=== PATIENT | female | born 1990 | race Caucasian/White ===

== ENCOUNTER 2018-02-20 22:08 | Inpatient (IN) ==
[2018-02-26 12:22] VITALS: BP 133/82
== END 2018-02-26 16:40 | disposition home or self-care (01) | DRG 167 ==
LOC: EDUNIT# → EDBD → N.ED 22:08 → N.EDINP 02-21 01:23 → SUATTDRO 02-21 01:23 → N.3E 02-21 01:58
PROVIDERS: ADMIT Internal Medicine; ATTEND Internal Medicine

== ENCOUNTER 2019-02-23 16:17 | Inpatient (IN) ==
[2019-02-23] MEDS ORDERED: ONDANSETRON 4 MG/2 ML VIAL IV STA (16:46)
[2019-02-23] MEDS ORDERED: FUROSEMIDE 40 MG/4 ML VIAL IV STA (16:46)
[2019-02-23] MEDS ORDERED: ALBUTEROL/IPRATROPIUM 3 ML NEB RESP TX STA (16:46)
[2019-02-23] MEDS ORDERED: methylPREDNISolone SOD SUC 125 MG/2 ML VIAL IV STA (16:46)
[2019-02-23 17:33] LABS: Basophils # 0.1 10*3/uL (0.0-0.2); Basophils % 0.8 % (0.0-0.8); Eosinophils # 0.3 10*3/uL (0.0-0.87); Eosinophils % 5.8 % (0.00-10.9); Hematocrit 36.9 VOL% (35.7-47.0); Hemoglobin 12.3 GM/DL (12.0-16.0); Immature Granulocytes % 0.3 %; Immature Granulocytes Absolute 0.02 #; Lymphocytes # 1.1 10*3/uL (1.4-4.0); Lymphocytes % 18.3 % (21.3-54.2); Mean Corpuscular HGB Conc 33.3 GM/DL (32-36); Mean Corpuscular Volume 91.8 FL (87-102); Mean Platelet Volume 11.3 FL (9.6-12.0); Monocytes % 12.9 % (1.7-12.7); Neutrophils % 61.9 % (38.7-73.9); Platelet Count 76 T/CUMM (130-400); Red Blood Count 4.02 MC/CUMM (3.8-5.5); Red Cell Distribution Width 14.7 % (9.3-17.3); White Blood Count 5.9 T/CUMM (4-12)
[2019-02-23 17:42] LABS: INR 1.3; PT Patient Result 14.1 SECS
[2019-02-23 17:59] LABS: Albumin 2.3 G/DL (3.4-5.0); Bilirubin,Total 1.4 MG/DL (0.2-1.0); Calcium 7.7 MG/DL (8.5-10.1); Osmolality,Calculated 273.7 MOS/KG (273-304); Total Protein 8.1 G/DL (6.4-8.3)
[2019-02-23 18:06] LABS: Apearance,Urine CLOUDY (Clear); Blood, Urine Moderate mg/dL (Negative); Glucose,Urine (UA) Negative (Negative); Ketones,Urine Negative (Negative); Mucus,Urine Many /LPF (Occasional); Nitrite,Urine Negative (Negative); Protein,Urine 30 MG/DL; RBC,Urine 14 /HPF (0-4); Squamous Epithelial Cell,Urine Moderate /HPF (0-10); Urine Specific Gravity 1.029 (1.001-1.035); WBC,Urine 1 /HPF (0-6)
[2019-02-23 18:07] LABS: Bilirubin,Urine Small mg/dL (Negative); Urine Color Dark yellow (Yellow)
[2019-02-24] MEDS ORDERED: ALBUTEROL 2.5 MG/3 ML NEB RESP TX PRN ×2 (00:33→13:51)
[2019-02-24] MEDS ORDERED: POTASSIUM CHLORIDE RIDER 10 MEQ in PREMIX 1 EACH IV PRN (00:33)
[2019-02-24] MEDS ORDERED: DOCUSATE SODIUM 100 MG CAPSULE PO PRN (00:33)
[2019-02-24] MEDS: AZITHROMYCIN INJ 500 MG in SODIUM CHLORIDE 0.9% 250 ML IV SCH (00:53)
[2019-02-24] MEDS: SODIUM CHLORIDE 0.9% 1,000 ML IV SCH ×2 (00:53→15:29)
[2019-02-24] MEDS: guaiFENesin/DM ER 600-30 MG TABLET PO SCH ×3 (00:57→22:10)
[2019-02-24] MEDS: MUPIROCIN 2% OINT 22 GM TUBE TOP SCH ×3 (00:57→22:14)
[2019-02-24] MEDS: ALBUTEROL/IPRATROPIUM 3 ML NEB RESP TX SCH ×4 (02:46→19:20)
[2019-02-24] MEDS: AZTREONAM 2,000 MG in SYRINGE 1 EACH IV SCH ×4 (02:53→22:11)
[2019-02-24] MEDS: VANCOMYCIN INJ 1,000 MG in SODIUM CHLORIDE 0.9% 250 ML IV SCH ×2 (02:57→15:29)
[2019-02-24 04:53] LABS: Basophils % 0.5 % (0.0-0.8); Hematocrit 34.5 VOL% (35.7-47.0); Hemoglobin 11.8 GM/DL (12.0-16.0); Immature Granulocytes % 0.5 %; Immature Granulocytes Absolute 0.01 #; Lymphocytes # 0.3 10*3/uL (1.4-4.0); Lymphocytes % 18.4 % (21.3-54.2); Mean Corpuscular HGB Conc 34.2 GM/DL (32-36); Mean Corpuscular Volume 91.3 FL (87-102); Mean Platelet Volume 11.4 FL (9.6-12.0); Monocytes % 1.6 % (1.7-12.7); Red Blood Count 3.78 MC/CUMM (3.8-5.5); Red Cell Distribution Width 14.6 % (9.3-17.3); White Blood Count 1.9 T/CUMM (4-12)
[2019-02-24 04:57] LABS: Platelet Count 45 T/CUMM (130-400)
[2019-02-24 05:31] LABS: Calcium 8.2 MG/DL (8.5-10.1); Osmolality,Calculated 283.5 MOS/KG (273-304); Thyroid Stimulating Hormone 1.98 uIU/ml (0.358-3.74)
[2019-02-24 05:33] LABS: Band Neutrophils 3 % (0-10); Hypochromasia 2+; Lymphocytes 17 % (20-55); Platelet Estimate Decreased; Segmented Neutrophils 76 % (50-85); Total Cells Counted 100
[2019-02-24] MEDS ORDERED: POTASSIUM CHLORIDE 20 MEQ TABLET PO PRN (06:35)
[2019-02-24] MEDS: ONDANSETRON 4 MG/2 ML VIAL IV PRN ×2 (06:37→11:59)
[2019-02-24] MEDS ORDERED: DICYCLOMINE 20 MG TABLET PO PRN (13:51)
[2019-02-24] MEDS ORDERED: PROMETHAZINE 25 MG TABLET PO PRN (13:51)
[2019-02-24] MEDS: oxyCODONE IR 5 MG TABLET PO PRN ×2 (15:27→22:10)
[2019-02-24] MEDS: PROPRANOLOL 10 MG TABLET PO SCH ×2 (15:28→22:10)
[2019-02-24] MEDS: POTASSIUM CHLORIDE 20 MEQ/15 ML UDCUP PO SCH ×2 (15:28→17:24)
[2019-02-24] MEDS: ONDANSETRON 4 MG TABLET PO PRN (15:28)
[2019-02-24] MEDS: CHOLECALCIFEROL 1,000 UNIT TABLET PO SCH (22:10)
[2019-02-24] MEDS: BUDESONIDE/FORMOTEROL 160-4.5 INHALER 6 GM INH SCH (22:15)
[2019-02-25] MEDS: ALBUTEROL/IPRATROPIUM 3 ML NEB RESP TX SCH ×4 (00:29→19:20)
[2019-02-25] MEDS: AZITHROMYCIN INJ 500 MG in SODIUM CHLORIDE 0.9% 250 ML IV SCH (00:56)
[2019-02-25] MEDS: VANCOMYCIN INJ 1,000 MG in SODIUM CHLORIDE 0.9% 250 ML IV SCH ×3 (02:57→23:25)
[2019-02-25 06:17] LABS: Basophils % 0.2 % (0.0-0.8); Eosinophils % 0.2 % (0.00-10.9); Hematocrit 33.5 VOL% (35.7-47.0); Hemoglobin 10.9 GM/DL (12.0-16.0); Immature Granulocytes % 0.8 %; Immature Granulocytes Absolute 0.05 #; Lymphocytes # 0.8 10*3/uL (1.4-4.0); Lymphocytes % 13.3 % (21.3-54.2); Mean Corpuscular HGB Conc 32.5 GM/DL (32-36); Mean Corpuscular Volume 94.4 FL (87-102); Mean Platelet Volume 11.4 FL (9.6-12.0); Monocytes % 7.6 % (1.7-12.7); Neutrophils % 77.9 % (38.7-73.9); Platelet Count 47 T/CUMM (130-400); Red Blood Count 3.55 MC/CUMM (3.8-5.5); Red Cell Distribution Width 14.8 % (9.3-17.3); White Blood Count 5.9 T/CUMM (4-12)
[2019-02-25 06:38] LABS: Band Neutrophils 1 % (0-10); Hypochromasia 1+; Lymphocytes 12 % (20-55); Platelet Estimate Decreased; Segmented Neutrophils 82 % (50-85); Total Cells Counted 100
[2019-02-25 06:59] LABS: Calcium 7.4 MG/DL (8.5-10.1)
[2019-02-25] MEDS: AZTREONAM 2,000 MG in SYRINGE 1 EACH IV SCH ×4 (08:28→21:06)
[2019-02-25] MEDS: guaiFENesin/DM ER 600-30 MG TABLET PO SCH ×2 (08:36→21:02)
[2019-02-25] MEDS: LEVOTHYROXINE 50 MCG TABLET PO SCH (08:37)
[2019-02-25] MEDS: CHOLECALCIFEROL 1,000 UNIT TABLET PO SCH ×2 (08:37→21:02)
[2019-02-25] MEDS: LINACLOTIDE 145 MCG CAPSULE PO SCH (08:37)
[2019-02-25] MEDS: PANTOPRAZOLE 40 MG TABLET PO SCH (08:38)
[2019-02-25] MEDS: SPIRONOLACTONE 100 MG TABLET PO SCH (08:38)
[2019-02-25] MEDS: BUDESONIDE/FORMOTEROL 160-4.5 INHALER 6 GM INH SCH ×2 (08:38→21:22)
[2019-02-25] MEDS: SODIUM CHLORIDE 0.9% 1,000 ML IV SCH ×2 (08:40→23:24)
[2019-02-25] MEDS: PROPRANOLOL 10 MG TABLET PO SCH ×3 (08:42→21:03)
[2019-02-25] MEDS: MUPIROCIN 2% OINT 22 GM TUBE TOP SCH ×2 (08:42→21:03)
[2019-02-25] MEDS: oxyCODONE IR 5 MG TABLET PO PRN (12:01)
[2019-02-25] MEDS: ONDANSETRON 4 MG TABLET PO PRN (12:01)
[2019-02-26] MEDS: ALBUTEROL/IPRATROPIUM 3 ML NEB RESP TX SCH ×4 (00:25→19:10)
[2019-02-26] MEDS: AZTREONAM 2,000 MG in SYRINGE 1 EACH IV SCH ×4 (03:55→22:02)
[2019-02-26 06:36] LABS: Basophils % 0.6 % (0.0-0.8); Eosinophils # 0.1 10*3/uL (0.0-0.87); Eosinophils % 3.3 % (0.00-10.9); Hematocrit 34.3 VOL% (35.7-47.0); Hemoglobin 10.7 GM/DL (12.0-16.0); Immature Granulocytes % 0.6 %; Immature Granulocytes Absolute 0.02 #; Lymphocytes # 0.8 10*3/uL (1.4-4.0); Mean Corpuscular HGB Conc 31.2 GM/DL (32-36); Mean Corpuscular Volume 97.4 FL (87-102); Mean Platelet Volume 11.9 FL (9.6-12.0); Neutrophils % 59.5 % (38.7-73.9); Platelet Count 54 T/CUMM (130-400); Red Blood Count 3.52 MC/CUMM (3.8-5.5); Red Cell Distribution Width 15.2 % (9.3-17.3); White Blood Count 3.3 T/CUMM (4-12)
[2019-02-26] MEDS: VANCOMYCIN INJ 1,000 MG in SODIUM CHLORIDE 0.9% 250 ML IV SCH ×3 (06:37→22:07)
[2019-02-26] MEDS: LEVOTHYROXINE 50 MCG TABLET PO SCH (06:44)
[2019-02-26 06:52] LABS: Albumin 1.7 G/DL (3.4-5.0); Bilirubin,Direct 0.31 MG/DL (0.0-0.20); Bilirubin,Indirect 0.3 MG/DL (0.0-1.0); Bilirubin,Total 0.6 MG/DL (0.2-1.0); Calcium 7.4 MG/DL (8.5-10.1); Osmolality,Calculated 287.7 MOS/KG (273-304); Total Protein 6.3 G/DL (6.4-8.3)
[2019-02-26 06:59] LABS: Anisocytosis 1+; Platelet Estimate Decreased
[2019-02-26 07:00] LABS: Macrocytosis Slight
[2019-02-26] MEDS: BUDESONIDE/FORMOTEROL 160-4.5 INHALER 6 GM INH SCH ×2 (08:40→22:17)
[2019-02-26] MEDS: AZITHROMYCIN 250 MG TABLET PO SCH (08:41)
[2019-02-26] MEDS: PROPRANOLOL 10 MG TABLET PO SCH ×3 (08:41→22:06)
[2019-02-26] MEDS: CHOLECALCIFEROL 1,000 UNIT TABLET PO SCH ×2 (08:41→22:02)
[2019-02-26] MEDS: MUPIROCIN 2% OINT 22 GM TUBE TOP SCH ×2 (08:41→21:58)
[2019-02-26] MEDS: PANTOPRAZOLE 40 MG TABLET PO SCH (08:41)
[2019-02-26] MEDS: guaiFENesin/DM ER 600-30 MG TABLET PO SCH ×2 (08:41→22:02)
[2019-02-26] MEDS: LINACLOTIDE 145 MCG CAPSULE PO SCH (08:42)
[2019-02-26] MEDS: SPIRONOLACTONE 100 MG TABLET PO SCH (08:44)
[2019-02-26] MEDS: oxyCODONE IR 5 MG TABLET PO PRN (10:17)
[2019-02-26] MEDS: ONDANSETRON 4 MG TABLET PO PRN (10:17)
[2019-02-26] MEDS: SODIUM CHLORIDE 0.9% 1,000 ML IV SCH (13:47)
[2019-02-27] MEDS: ALBUTEROL/IPRATROPIUM 3 ML NEB RESP TX SCH ×2 (00:45→07:51)
[2019-02-27] MEDS: AZTREONAM 2,000 MG in SYRINGE 1 EACH IV SCH ×4 (04:33→21:33)
[2019-02-27] MEDS: SODIUM CHLORIDE 0.9% 1,000 ML IV SCH (06:34)
[2019-02-27] MEDS: VANCOMYCIN INJ 1,000 MG in SODIUM CHLORIDE 0.9% 250 ML IV SCH ×3 (06:35→21:45)
[2019-02-27] MEDS: LEVOTHYROXINE 50 MCG TABLET PO SCH (06:36)
[2019-02-27] MEDS: oxyCODONE IR 5 MG TABLET PO PRN ×2 (08:53→21:47)
[2019-02-27] MEDS: LINACLOTIDE 145 MCG CAPSULE PO SCH (08:54)
[2019-02-27] MEDS: AZITHROMYCIN 250 MG TABLET PO SCH (08:55)
[2019-02-27] MEDS: guaiFENesin/DM ER 600-30 MG TABLET PO SCH ×2 (08:55→21:35)
[2019-02-27] MEDS: SPIRONOLACTONE 100 MG TABLET PO SCH (08:55)
[2019-02-27] MEDS: PANTOPRAZOLE 40 MG TABLET PO SCH (08:55)
[2019-02-27] MEDS: CHOLECALCIFEROL 1,000 UNIT TABLET PO SCH ×2 (08:55→21:35)
[2019-02-27] MEDS: BUDESONIDE/FORMOTEROL 160-4.5 INHALER 6 GM INH SCH ×2 (08:56→21:37)
[2019-02-27] MEDS: MUPIROCIN 2% OINT 22 GM TUBE TOP SCH ×2 (08:56→21:41)
[2019-02-27] MEDS: PROPRANOLOL 10 MG TABLET PO SCH ×3 (08:56→21:37)
[2019-02-27] MEDS: LEVALBUTEROL 0.63 MG/3 ML NEB RESP TX SCH ×2 (13:37→19:20)
[2019-02-27] MEDS: ONDANSETRON 4 MG TABLET PO PRN (21:47)
[2019-02-28] MEDS: LEVALBUTEROL 0.63 MG/3 ML NEB RESP TX SCH ×4 (00:40→20:00)
[2019-02-28] MEDS: AZTREONAM 2,000 MG in SYRINGE 1 EACH IV SCH ×2 (02:56→09:06)
[2019-02-28 05:29] LABS: Basophils % 0.9 % (0.0-0.8); Eosinophils # 0.2 10*3/uL (0.0-0.87); Eosinophils % 9.2 % (0.00-10.9); Hematocrit 33.6 VOL% (35.7-47.0); Hemoglobin 10.9 GM/DL (12.0-16.0); Lymphocytes # 0.6 10*3/uL (1.4-4.0); Lymphocytes % 27.2 % (21.3-54.2); Mean Corpuscular HGB Conc 32.4 GM/DL (32-36); Mean Corpuscular Volume 95.5 FL (87-102); Mean Platelet Volume 11.8 FL (9.6-12.0); Monocytes % 11.1 % (1.7-12.7); Neutrophils % 51.6 % (38.7-73.9); Platelet Count 40 T/CUMM (130-400); Red Blood Count 3.52 MC/CUMM (3.8-5.5); Red Cell Distribution Width 14.8 % (9.3-17.3); White Blood Count 2.2 T/CUMM (4-12)
[2019-02-28] MEDS: VANCOMYCIN INJ 1,000 MG in SODIUM CHLORIDE 0.9% 250 ML IV SCH ×3 (05:33→21:15)
[2019-02-28] MEDS: LEVOTHYROXINE 50 MCG TABLET PO SCH (05:34)
[2019-02-28 05:55] LABS: Eosinophils 17 % (0-10); Hypochromasia 1+; Lymphocytes 17 % (20-55); Macrocytosis Slight; Platelet Estimate Decreased; Segmented Neutrophils 58 % (50-85); Total Cells Counted 100
[2019-02-28 06:10] LABS: Calcium 7.8 MG/DL (8.5-10.1)
[2019-02-28] MEDS: SPIRONOLACTONE 100 MG TABLET PO SCH (09:06)
[2019-02-28] MEDS: LINACLOTIDE 145 MCG CAPSULE PO SCH (09:06)
[2019-02-28] MEDS: BUDESONIDE/FORMOTEROL 160-4.5 INHALER 6 GM INH SCH ×2 (09:07→21:15)
[2019-02-28] MEDS: PROPRANOLOL 10 MG TABLET PO SCH ×3 (09:07→21:14)
[2019-02-28] MEDS: CHOLECALCIFEROL 1,000 UNIT TABLET PO SCH ×2 (09:07→21:14)
[2019-02-28] MEDS: guaiFENesin/DM ER 600-30 MG TABLET PO SCH ×2 (09:07→21:14)
[2019-02-28] MEDS: AZITHROMYCIN 250 MG TABLET PO SCH (09:07)
[2019-02-28] MEDS: oxyCODONE IR 5 MG TABLET PO PRN ×2 (09:07→17:23)
[2019-02-28] MEDS: PANTOPRAZOLE 40 MG TABLET PO SCH (09:07)
[2019-02-28] MEDS: MUPIROCIN 2% OINT 22 GM TUBE TOP SCH ×2 (09:08→21:14)
[2019-02-28] MEDS ORDERED: AZTREONAM 2,000 MG in SYRINGE 1 EACH IV SCH (15:00)
[2019-02-28] MEDS: ONDANSETRON 4 MG TABLET PO PRN (17:23)
[2019-03-01] MEDS: LEVALBUTEROL 0.63 MG/3 ML NEB RESP TX SCH ×2 (00:28→07:09)
[2019-03-01] MEDS: VANCOMYCIN INJ 1,000 MG in SODIUM CHLORIDE 0.9% 250 ML IV SCH (06:53)
[2019-03-01] MEDS: LEVOTHYROXINE 50 MCG TABLET PO SCH (06:53)
[2019-03-01] MEDS: LINACLOTIDE 145 MCG CAPSULE PO SCH (06:54)
[2019-03-01 07:37] VITALS: BP 124/68
[2019-03-01] MEDS: PROPRANOLOL 10 MG TABLET PO SCH (09:02)
[2019-03-01] MEDS: guaiFENesin/DM ER 600-30 MG TABLET PO SCH (09:22)
[2019-03-01] MEDS: SPIRONOLACTONE 100 MG TABLET PO SCH (09:22)
[2019-03-01] MEDS: CHOLECALCIFEROL 1,000 UNIT TABLET PO SCH (09:22)
[2019-03-01] MEDS: MUPIROCIN 2% OINT 22 GM TUBE TOP SCH (09:23)
[2019-03-01] MEDS: PANTOPRAZOLE 40 MG TABLET PO SCH (09:23)
[2019-03-01] MEDS: BUDESONIDE/FORMOTEROL 160-4.5 INHALER 6 GM INH SCH (09:23)
== END 2019-03-01 11:59 | disposition home or self-care (01) | DRG 192 ==
LOC: N.ED 16:17 → N.EDINP 20:56 → SUATTDRO 20:56 → N.5E 21:11
PROVIDERS: ADMIT Internal Medicine; ATTEND Internal Medicine Geriatric Medicine

== ENCOUNTER 2019-03-14 20:23 | Inpatient (IN) ==
[2019-03-14 20:58] LABS: Basophils # 0.1 10*3/uL (0.0-0.2); Basophils % 0.7 % (0.0-0.8); Eosinophils # 0.7 10*3/uL (0.0-0.87); Eosinophils % 8.5 % (0.00-10.9); Hematocrit 42.5 VOL% (35.7-47.0); Hemoglobin 14.1 GM/DL (12.0-16.0); Immature Granulocytes % 0.6 %; Immature Granulocytes Absolute 0.05 #; Lymphocytes # 1.3 10*3/uL (1.4-4.0); Lymphocytes % 15.3 % (21.3-54.2); Mean Corpuscular HGB Conc 33.2 GM/DL (32-36); Mean Corpuscular Volume 91.8 FL (87-102); Mean Platelet Volume 10.2 FL (9.6-12.0); Monocytes % 12.7 % (1.7-12.7); Neutrophils % 62.2 % (38.7-73.9); Platelet Count 97 T/CUMM (130-400); Red Blood Count 4.63 MC/CUMM (3.8-5.5); Red Cell Distribution Width 14.5 % (9.3-17.3); White Blood Count 8.6 T/CUMM (4-12)
[2019-03-14 21:04] LABS: INR 1.4; PT Patient Result 15.3 SECS
[2019-03-14 21:21] LABS: Platelet Estimate Decreased; Platelet Satellitism Few
[2019-03-14 21:24] LABS: Albumin 2.6 G/DL (3.4-5.0); Bilirubin,Total 3.3 MG/DL (0.2-1.0); Osmolality,Calculated 268.1 MOS/KG (273-304); Total Protein 8.5 G/DL (6.4-8.3)
[2019-03-14] MEDS ORDERED: methylPREDNISolone SOD SUC 125 MG/2 ML VIAL IV STA (22:50)
[2019-03-14] MEDS ORDERED: ALBUTEROL/IPRATROPIUM 3 ML NEB RESP TX STA (22:50)
[2019-03-14] MEDS ORDERED: ONDANSETRON 4 MG/2 ML VIAL IV PRN (23:25)
[2019-03-14] MEDS ORDERED: NICOTINE 21 MG/24 HR PATCH TRANSDERM PRN (23:25)
[2019-03-15] MEDS ORDERED: VANCOMYCIN INJ 1,000 MG in SODIUM CHLORIDE 0.9% 250 ML IV SCH (01:00)
[2019-03-15] MEDS: ALBUTEROL/IPRATROPIUM 3 ML NEB RESP TX SCH ×4 (01:03→19:50)
[2019-03-15] MEDS: DOXYCYCLINE HYCLATE INJ 100 MG in SODIUM CHLORIDE 0.9% 100 ML IV SCH ×2 (02:07→14:53)
[2019-03-15] MEDS: AZTREONAM 1,000 MG in SODIUM CHLORIDE 0.9% 100 ML IV SCH ×2 (02:10→14:14)
[2019-03-15 02:25] LABS: Albumin 2.3 G/DL (3.4-5.0); Bilirubin,Total 3.3 MG/DL (0.2-1.0); Calcium 8.1 MG/DL (8.5-10.1); Osmolality,Calculated 274.7 MOS/KG (273-304); Total Protein 7.6 G/DL (6.4-8.3)
[2019-03-15] MEDS: POTASSIUM CHLORIDE 20 MEQ TABLET PO PRN ×3 (08:37→13:34)
[2019-03-15] MEDS: VANCOMYCIN INJ 1,000 MG in SODIUM CHLORIDE 0.9% 250 ML IV SCH ×2 (11:35→20:45)
[2019-03-15] MEDS ORDERED: MORPHINE 4 MG/1 ML VIAL IV PRN (23:45)
[2019-03-16] MEDS: ALBUTEROL/IPRATROPIUM 3 ML NEB RESP TX SCH ×5 (01:32→20:02)
[2019-03-16] MEDS: AZTREONAM 1,000 MG in SODIUM CHLORIDE 0.9% 100 ML IV SCH ×2 (02:08→15:01)
[2019-03-16] MEDS: DOXYCYCLINE HYCLATE INJ 100 MG in SODIUM CHLORIDE 0.9% 100 ML IV SCH ×2 (02:08→15:32)
[2019-03-16] MEDS: VANCOMYCIN INJ 1,000 MG in SODIUM CHLORIDE 0.9% 250 ML IV SCH ×3 (06:09→21:20)
[2019-03-16 07:22] LABS: Basophils % 0.3 % (0.0-0.8); Hematocrit 35.8 VOL% (35.7-47.0); Immature Granulocytes % 0.9 %; Immature Granulocytes Absolute 0.06 #; Lymphocytes # 0.5 10*3/uL (1.4-4.0); Lymphocytes % 7.3 % (21.3-54.2); Mean Corpuscular HGB Conc 32.4 GM/DL (32-36); Mean Platelet Volume 11.4 FL (9.6-12.0); Monocytes % 5.5 % (1.7-12.7); Red Blood Count 3.77 MC/CUMM (3.8-5.5); Red Cell Distribution Width 14.5 % (9.3-17.3)
[2019-03-16 07:25] LABS: Hemoglobin 11.6 GM/DL (12.0-16.0); Platelet Count 50 T/CUMM (130-400)
[2019-03-16] MEDS ORDERED: PROMETHAZINE 25 MG/1 ML VIAL IM ONE (07:30)
[2019-03-16] MEDS ORDERED: MEPERIDINE 50 MG/1 ML VIAL IM ONE (07:30)
[2019-03-16 07:36] LABS: Osmolality,Calculated 289.7 MOS/KG (273-304)
[2019-03-16] MEDS ORDERED: MIDAZOLAM 2 MG/2 ML VIAL ONE (07:39)
[2019-03-16 07:47] LABS: Hypochromasia Slight; Platelet Estimate Decreased
[2019-03-16] MEDS ORDERED: MIDAZOLAM 2 MG/2 ML VIAL IV ONE (08:00)
[2019-03-16] MEDS ORDERED: LIDOCAINE 2% 20 ML VIAL RESP TX ONE (08:00)
[2019-03-16] MEDS ORDERED: LIDOCAINE 2% VISCOUS 100 ML BOTTLE SWISH/SPIT ONE (08:00)
[2019-03-16] MEDS ORDERED: LIDOCAINE 1% 20 ML VIAL MISC INJ ONE (08:00)
[2019-03-17] MEDS: AZTREONAM 1,000 MG in SODIUM CHLORIDE 0.9% 100 ML IV SCH ×2 (01:02→15:31)
[2019-03-17] MEDS: DOXYCYCLINE HYCLATE INJ 100 MG in SODIUM CHLORIDE 0.9% 100 ML IV SCH ×2 (01:56→17:07)
[2019-03-17] MEDS: ALBUTEROL/IPRATROPIUM 3 ML NEB RESP TX SCH ×4 (02:02→19:18)
[2019-03-17] MEDS: VANCOMYCIN INJ 1,000 MG in SODIUM CHLORIDE 0.9% 250 ML IV SCH ×3 (03:15→21:42)
[2019-03-17] MEDS ORDERED: FLUMAZENIL 1 MG/10 ML VIAL IV ONE (12:14)
[2019-03-18] MEDS: ALBUTEROL/IPRATROPIUM 3 ML NEB RESP TX SCH ×3 (00:21→14:02)
[2019-03-18] MEDS: AZTREONAM 1,000 MG in SODIUM CHLORIDE 0.9% 100 ML IV SCH (02:00)
[2019-03-18] MEDS: DOXYCYCLINE HYCLATE INJ 100 MG in SODIUM CHLORIDE 0.9% 100 ML IV SCH ×2 (02:04→13:11)
[2019-03-18 04:42] LABS: Basophils % 0.3 % (0.0-0.8); Eosinophils # 0.1 10*3/uL (0.0-0.87); Eosinophils % 4.1 % (0.00-10.9); Hematocrit 34.4 VOL% (35.7-47.0); Hemoglobin 10.8 GM/DL (12.0-16.0); Immature Granulocytes % 0.7 %; Immature Granulocytes Absolute 0.02 #; Lymphocytes # 0.7 10*3/uL (1.4-4.0); Lymphocytes % 24.2 % (21.3-54.2); Mean Corpuscular HGB Conc 31.4 GM/DL (32-36); Mean Corpuscular Volume 97.7 FL (87-102); Mean Platelet Volume 11.2 FL (9.6-12.0); Monocytes % 12.6 % (1.7-12.7); Neutrophils % 58.1 % (38.7-73.9); Red Blood Count 3.52 MC/CUMM (3.8-5.5); Red Cell Distribution Width 15.1 % (9.3-17.3); White Blood Count 2.9 T/CUMM (4-12)
[2019-03-18 04:48] LABS: Platelet Count 52 T/CUMM (130-400)
[2019-03-18 05:03] LABS: Hypochromasia 1+; Platelet Estimate Decreased
[2019-03-18 05:13] LABS: Calcium 7.9 MG/DL (8.5-10.1); Osmolality,Calculated 292.4 MOS/KG (273-304)
[2019-03-18 12:17] VITALS: BP 101/61
[2019-03-18 14:16] LABS: TB2 Ag Minus Result 0 IU/mL
[2019-03-18] MEDS ORDERED: ESCITALOPRAM 10 MG TABLET PO SCH (21:00)
== END 2019-03-18 14:35 | disposition home health service (06) | DRG 191 ==
LOC: N.ED 20:23 → N.EDINP 23:30 → N.4E 23:58
PROVIDERS: ADMIT Hospitalist; ATTEND Hospitalist

== ENCOUNTER 2019-05-08 20:51 | Observation (INO) ==
[2019-05-08] MEDS ORDERED: ALBUTEROL/IPRATROPIUM 3 ML NEB RESP TX STA ×2 (21:16→21:49)
[2019-05-08] MEDS ORDERED: ORPHENADRINE 60 MG/2 ML VIAL IV STA (21:18)
[2019-05-08] MEDS ORDERED: VANCOMYCIN INJ 1,000 MG in SODIUM CHLORIDE 0.9% 250 ML IV STA (21:49)
[2019-05-08 22:31] LABS: Basophils % 0.7 % (0.0-0.8); Eosinophils # 0.1 10*3/uL (0.0-0.87); Eosinophils % 1.3 % (0.00-10.9); Hematocrit 38.4 VOL% (35.7-47.0); Hemoglobin 13.1 GM/DL (12.0-16.0); Immature Granulocytes % 0.5 %; Immature Granulocytes Absolute 0.03 #; Lymphocytes % 16.9 % (21.3-54.2); Mean Corpuscular HGB Conc 34.1 GM/DL (32-36); Mean Platelet Volume 12.1 FL (9.6-12.0); Monocytes % 7.5 % (1.7-12.7); Neutrophils % 73.1 % (38.7-73.9); Platelet Count 50 T/CUMM (130-400); Red Blood Count 4.22 MC/CUMM (3.8-5.5); Red Cell Distribution Width 14.8 % (9.3-17.3)
[2019-05-08 22:41] LABS: Apearance,Urine CLEAR (Clear); Bilirubin,Urine Negative (Negative); Blood, Urine Negative (Negative); Glucose,Urine (UA) Negative (Negative); Ketones,Urine Negative (Negative); Mucus,Urine Many /LPF (Occasional); Nitrite,Urine Negative (Negative); Protein,Urine 30 MG/DL; RBC,Urine 7 /HPF (0-4); Squamous Epithelial Cell,Urine Occasional /HPF (0-10); Urine Color Amber (Yellow); Urine Specific Gravity 1.019 (1.001-1.035); WBC,Urine 3 /HPF (0-6)
[2019-05-08 22:56] LABS: Albumin 2.6 G/DL (3.4-5.0); Bilirubin,Total 2.6 MG/DL (0.2-1.0); Calcium 8.2 MG/DL (8.5-10.1); Free T4 (Free Thyroxine) 1.51 NG/DL (0.76-1.46); Osmolality,Calculated 277.3 MOS/KG (273-304); Thyroid Stimulating Hormone 4.73 uIU/ml (0.358-3.74)
[2019-05-09] MEDS: ONDANSETRON 4 MG/2 ML VIAL IV PRN ×2 (00:10→14:33)
[2019-05-09] MEDS ORDERED: guaiFENesin 200 MG/10 ML UDCUP PO PRN (00:12)
[2019-05-09 00:31] LABS: Anisocytosis 1+; Platelet Estimate Decreased
[2019-05-09] MEDS ORDERED: INFLUENZA VIRUS VACCINE 0.5 ML SYRINGE IM ONE (00:54)
[2019-05-09 01:03] LABS: Troponin I < 0.015 NG/ML (0.00-0.045)
[2019-05-09] MEDS: POTASSIUM CHLORIDE RIDER 10 MEQ in PREMIX 1 EACH IV SCH ×3 (01:24→04:27)
[2019-05-09] MEDS: ALBUTEROL/IPRATROPIUM 3 ML NEB RESP TX SCH ×6 (02:30→23:51)
[2019-05-09 06:05] LABS: Troponin I < 0.015 NG/ML (0.00-0.045)
[2019-05-09] MEDS ORDERED: ENOXAPARIN 40 MG/0.4 ML SYRINGE SUBCUT SCH (09:00)
[2019-05-09] MEDS ORDERED: oxyCODONE IR 5 MG TABLET PO PRN (10:48)
[2019-05-09] MEDS: BUDESONIDE/FORMOTEROL 160-4.5 INHALER 6 GM INH SCH ×2 (10:50→21:05)
[2019-05-09] MEDS: VANCOMYCIN INJ 1,000 MG in SODIUM CHLORIDE 0.9% 250 ML IV SCH ×2 (11:06→16:20)
[2019-05-09 13:12] LABS: Troponin I < 0.015 NG/ML (0.00-0.045)
[2019-05-09 15:06] LABS: Calcium 7.9 MG/DL (8.5-10.1)
[2019-05-09] MEDS ORDERED: MAGNESIUM SULF RIDER 4 GM in PREMIX 1 EACH IV PRN (15:19)
[2019-05-09] MEDS ORDERED: MAGNESIUM SULF RIDER 2 GM in PREMIX 1 EACH IV PRN (15:19)
[2019-05-09] MEDS: POTASSIUM CHLORIDE 20 MEQ TABLET PO PRN ×2 (16:20→17:33)
[2019-05-09] MEDS: PANTOPRAZOLE 40 MG TABLET PO SCH (16:20)
[2019-05-10] MEDS: VANCOMYCIN INJ 1,000 MG in SODIUM CHLORIDE 0.9% 250 ML IV SCH ×2 (01:16→09:38)
[2019-05-10] MEDS: ALBUTEROL/IPRATROPIUM 3 ML NEB RESP TX SCH ×4 (03:30→13:55)
[2019-05-10 04:56] LABS: Basophils % 0.5 % (0.0-0.8); Eosinophils # 0.1 10*3/uL (0.0-0.87); Eosinophils % 4.1 % (0.00-10.9); Hematocrit 31.3 VOL% (35.7-47.0); Hemoglobin 10.3 GM/DL (12.0-16.0); Lymphocytes # 0.5 10*3/uL (1.4-4.0); Lymphocytes % 23.4 % (21.3-54.2); Mean Corpuscular HGB Conc 32.9 GM/DL (32-36); Mean Corpuscular Volume 93.2 FL (87-102); Mean Platelet Volume 11.7 FL (9.6-12.0); Monocytes % 9.1 % (1.7-12.7); Neutrophils % 62.9 % (38.7-73.9); Red Blood Count 3.36 MC/CUMM (3.8-5.5); Red Cell Distribution Width 14.8 % (9.3-17.3)
[2019-05-10 05:10] LABS: Calcium 7.9 MG/DL (8.5-10.1); Osmolality,Calculated 286.6 MOS/KG (273-304)
[2019-05-10 05:36] LABS: Platelet Count 31 T/CUMM (130-400)
[2019-05-10 05:44] LABS: Eosinophils 3 % (0-10); Hypochromasia 1+; Lymphocytes 15 % (20-55); Platelet Estimate Decreased; Segmented Neutrophils 73 % (50-85); Total Cells Counted 100
[2019-05-10] MEDS ORDERED: LEVOTHYROXINE 100 MCG TABLET PO SCH (06:30)
[2019-05-10] MEDS ORDERED: LEVOTHYROXINE 75 MCG TABLET PO SCH (06:30)
[2019-05-10] MEDS: BUDESONIDE/FORMOTEROL 160-4.5 INHALER 6 GM INH SCH (09:38)
[2019-05-10] MEDS: PANTOPRAZOLE 40 MG TABLET PO SCH (09:39)
[2019-05-10] MEDS: POTASSIUM CHLORIDE 20 MEQ TABLET PO PRN (09:39)
[2019-05-10 09:51] LABS: Basophils % 0.7 % (0.0-0.8); Eosinophils # 0.1 10*3/uL (0.0-0.87); Eosinophils % 4.2 % (0.00-10.9); Hematocrit 34.5 VOL% (35.7-47.0); Hemoglobin 11.3 GM/DL (12.0-16.0); Immature Granulocytes % 0.3 %; Immature Granulocytes Absolute 0.01 #; Lymphocytes # 0.4 10*3/uL (1.4-4.0); Lymphocytes % 14.9 % (21.3-54.2); Mean Corpuscular HGB Conc 32.8 GM/DL (32-36); Mean Corpuscular Volume 93.8 FL (87-102); Mean Platelet Volume 11.4 FL (9.6-12.0); Monocytes % 8.3 % (1.7-12.7); Neutrophils % 71.6 % (38.7-73.9); Red Blood Count 3.68 MC/CUMM (3.8-5.5); Red Cell Distribution Width 15.1 % (9.3-17.3); White Blood Count 2.9 T/CUMM (4-12)
[2019-05-10 09:54] LABS: Platelet Count 35 T/CUMM (130-400)
[2019-05-10 10:22] LABS: Hypochromasia 1+
[2019-05-10 10:23] LABS: Microcytosis Slight; Ovalocytes Slight; Platelet Estimate Decreased
[2019-05-10 11:35] VITALS: BP 115/71
[2019-05-10] MEDS: ONDANSETRON 4 MG/2 ML VIAL IV PRN (13:38)
[2019-05-10] MEDS ORDERED: POLYETHYLENE GLYCOL POWDER 17 GM PACK PO PRN (14:50)
[2019-05-10] MEDS ORDERED: DOXYCYCLINE HYCLATE 100 MG CAPSULE PO SCH (21:00)
== END 2019-05-10 17:38 | disposition home or self-care (01) ==
LOC: EDBD → EDUNIT# → N.ED 20:51 → N.EDINP 20:51 → SUATTDRO 23:39 → N.2E 05-09 00:21
PROVIDERS: ADMIT Internal Medicine; ATTEND Internal Medicine

== ENCOUNTER 2019-08-02 15:34 | Observation (INO) ==
[2019-08-02 16:07] LABS: Basophils % 0.7 % (0.0-0.8); Eosinophils # 0.2 10*3/uL (0.0-0.87); Eosinophils % 3.2 % (0.00-10.9); Hemoglobin 11.7 GM/DL (12.0-16.0); Immature Granulocytes % 0.7 %; Immature Granulocytes Absolute 0.04 #; Lymphocytes # 0.8 10*3/uL (1.4-4.0); Mean Corpuscular HGB Conc 33.4 GM/DL (32-36); Mean Corpuscular Volume 89.3 FL (87-102); Mean Platelet Volume 11.4 FL (9.6-12.0); Monocytes % 15.7 % (1.7-12.7); Neutrophils % 65.7 % (38.7-73.9); Platelet Count 42 T/CUMM (130-400); Red Blood Count 3.92 MC/CUMM (3.8-5.5); Red Cell Distribution Width 16.3 % (9.3-17.3); White Blood Count 5.9 T/CUMM (4-12)
[2019-08-02 16:41] LABS: Albumin 1.9 G/DL (3.4-5.0); Calcium 6.9 MG/DL (8.5-10.1); Osmolality,Calculated 273.5 MOS/KG (273-304); Total Protein 6.9 G/DL (6.4-8.3)
[2019-08-02] MEDS ORDERED: LACTULOSE 20 GM/30 ML UDCUP PO STA (17:11)
[2019-08-02] MEDS ORDERED: ONDANSETRON 4 MG/2 ML VIAL IV STA (17:33)
[2019-08-02 17:51] LABS: Eosinophils 2 % (0-10); Lymphocytes 12 % (20-55); Segmented Neutrophils 67 % (50-85); Total Cells Counted 100
[2019-08-02 17:52] LABS: Hypochromasia 2+; Microcytosis Slight; Platelet Estimate Adequate
[2019-08-02] MEDS ORDERED: ONDANSETRON 4 MG/2 ML VIAL IV PRN (18:31)
[2019-08-02] MEDS: CHOLECALCIFEROL 1,000 UNIT TABLET PO SCH (21:55)
[2019-08-02] MEDS: RIFAXIMIN 550 MG TABLET PO SCH (21:55)
[2019-08-02] MEDS: PROPRANOLOL 10 MG TABLET PO SCH (21:55)
[2019-08-03] MEDS ORDERED: INFLUENZA VIRUS VACCINE 0.5 ML SYRINGE IM ONE (01:10)
[2019-08-03 05:10] LABS: Calcium 7.1 MG/DL (8.5-10.1)
[2019-08-03 06:18] LABS: Basophils % 0.3 % (0.0-0.8); Eosinophils # 0.1 10*3/uL (0.0-0.87); Eosinophils % 3.3 % (0.00-10.9); Hematocrit 31.1 VOL% (35.7-47.0); Hemoglobin 10.3 GM/DL (12.0-16.0); Immature Granulocytes % 0.3 %; Immature Granulocytes Absolute 0.01 #; Lymphocytes # 0.6 10*3/uL (1.4-4.0); Lymphocytes % 17.9 % (21.3-54.2); Mean Corpuscular HGB Conc 33.1 GM/DL (32-36); Mean Corpuscular Volume 90.4 FL (87-102); Mean Platelet Volume 11.5 FL (9.6-12.0); Monocytes % 16.1 % (1.7-12.7); Neutrophils % 62.1 % (38.7-73.9); Red Blood Count 3.44 MC/CUMM (3.8-5.5); Red Cell Distribution Width 16.7 % (9.3-17.3); White Blood Count 3.4 T/CUMM (4-12)
[2019-08-03 06:20] LABS: Platelet Count 28 T/CUMM (130-400)
[2019-08-03 06:39] LABS: Eosinophils 2 % (0-10); Lymphocytes 12 % (20-55); Segmented Neutrophils 75 % (50-85); Total Cells Counted 100
[2019-08-03 06:40] LABS: Hypochromasia 1+; Microcytosis Slight; Platelet Estimate Decreased
[2019-08-03] MEDS: LEVOTHYROXINE 75 MCG TABLET PO SCH (07:08)
[2019-08-03] MEDS ORDERED: LACTULOSE 20 GM/30 ML UDCUP PO SCH (09:00)
[2019-08-03] MEDS: FUROSEMIDE 40 MG TABLET PO SCH (09:27)
[2019-08-03] MEDS: CHOLECALCIFEROL 1,000 UNIT TABLET PO SCH ×2 (09:27→21:17)
[2019-08-03] MEDS: MULTIVITAMIN (CENTRUM) TABLET PO SCH (09:27)
[2019-08-03] MEDS: RIFAXIMIN 550 MG TABLET PO SCH ×2 (09:27→21:18)
[2019-08-03] MEDS: PANTOPRAZOLE 40 MG TABLET PO SCH (09:27)
[2019-08-03] MEDS: PROPRANOLOL 10 MG TABLET PO SCH ×2 (09:27→21:15)
[2019-08-03] MEDS: POTASSIUM CHLORIDE 20 MEQ/15 ML UDCUP PO SCH (09:28)
[2019-08-03] MEDS ORDERED: guaiFENesin 200 MG/10 ML UDCUP PO PRN (15:57)
[2019-08-03] MEDS: LACTULOSE 20 GM/30 ML UDCUP PO SCH (21:17)
[2019-08-04] MEDS: LEVOTHYROXINE 75 MCG TABLET PO SCH (06:04)
[2019-08-04] MEDS: FUROSEMIDE 40 MG TABLET PO SCH (09:10)
[2019-08-04] MEDS: PANTOPRAZOLE 40 MG TABLET PO SCH (09:10)
[2019-08-04] MEDS: POTASSIUM CHLORIDE 20 MEQ/15 ML UDCUP PO SCH (09:10)
[2019-08-04] MEDS: RIFAXIMIN 550 MG TABLET PO SCH (09:10)
[2019-08-04] MEDS: CHOLECALCIFEROL 1,000 UNIT TABLET PO SCH (09:10)
[2019-08-04] MEDS: LACTULOSE 20 GM/30 ML UDCUP PO SCH (09:10)
[2019-08-04] MEDS: MULTIVITAMIN (CENTRUM) TABLET PO SCH (09:10)
[2019-08-04] MEDS: PROPRANOLOL 10 MG TABLET PO SCH (09:11)
[2019-08-04 12:26] VITALS: BP 108/60
== END 2019-08-04 17:15 | disposition home or self-care (01) ==
LOC: EDUNIT# → EDBD → N.ED 15:34 → N.EDINP 15:34 → N.5E 20:25
PROVIDERS: ADMIT Internal Medicine Geriatric Medicine; ATTEND Internal Medicine Geriatric Medicine

== ENCOUNTER 2019-08-17 17:03 | Inpatient (IN) ==
[2019-08-17] MEDS ORDERED: AZITHROMYCIN INJ 500 MG in SODIUM CHLORIDE 0.9% 250 ML IV STA (17:26)
[2019-08-17] MEDS ORDERED: ONDANSETRON 4 MG/2 ML VIAL IV STA (17:26)
[2019-08-17] MEDS ORDERED: methylPREDNISolone SOD SUC 125 MG/2 ML VIAL IV STA (17:26)
[2019-08-17] MEDS: ALBUTEROL 2.5 MG/3 ML NEB RESP TX SCH ×3 (17:42→18:29)
[2019-08-17 18:09] LABS: Basophils % 0.8 % (0.0-0.8); Eosinophils # 0.2 10*3/uL (0.0-0.87); Eosinophils % 3.8 % (0.00-10.9); Hematocrit 36.6 VOL% (35.7-47.0); Hemoglobin 11.8 GM/DL (12.0-16.0); Immature Granulocytes % 0.6 %; Immature Granulocytes Absolute 0.03 #; Lymphocytes # 0.9 10*3/uL (1.4-4.0); Lymphocytes % 17.6 % (21.3-54.2); Mean Corpuscular HGB Conc 32.2 GM/DL (32-36); Mean Corpuscular Volume 91.5 FL (87-102); Mean Platelet Volume 11.5 FL (9.6-12.0); Monocytes % 9.4 % (1.7-12.7); Neutrophils % 67.8 % (38.7-73.9); Platelet Count 81 T/CUMM (130-400); Red Cell Distribution Width 16.6 % (9.3-17.3); White Blood Count 5.2 T/CUMM (4-12)
[2019-08-17 18:19] LABS: INR 1.3; PT Patient Result 13.7 SECS (9.6-12.2); Partial Thromboplastin Time 28.5 SECS (20.8-36.0)
[2019-08-17 18:31] LABS: Calcium 7.8 MG/DL (8.5-10.1); Osmolality,Calculated 277.4 MOS/KG (273-304); Total Protein 7.1 G/DL (6.4-8.3)
[2019-08-17 18:51] LABS: Apearance,Urine Slightly Hazy (Clear); Bacteria,Urine Occasional /HPF (Few); Bilirubin,Urine Negative (Negative); Blood, Urine Negative (Negative); Calcium Oxalate Crystals,Urine Moderate /HPF (Few); Glucose,Urine (UA) Negative (Negative); Hyaline Casts,Urine 1 /LPF (0-3); Ketones,Urine Negative (Negative); Mucus,Urine Moderate /LPF (Occasional); Nitrite,Urine Negative (Negative); Protein,Urine Negative; RBC,Urine 5 /HPF (0-4); Squamous Epithelial Cell,Urine Occasional /HPF (0-10); Urine Color Amber (Yellow); Urine Specific Gravity 1.017 (1.001-1.035); Urine Urobilinogen < 2.0 EU/DL (0.2-1.0); WBC,Urine 5 /HPF (0-6)
[2019-08-17] MEDS ORDERED: ACETAMINOPHEN 325 MG TABLET PO PRN (20:42)
[2019-08-18 05:38] LABS: Eosinophils % 0.5 % (0.00-10.9); Hematocrit 35.7 VOL% (35.7-47.0); Hemoglobin 11.7 GM/DL (12.0-16.0); Immature Granulocytes % 0.5 %; Immature Granulocytes Absolute 0.01 #; Lymphocytes # 0.3 10*3/uL (1.4-4.0); Mean Corpuscular HGB Conc 32.8 GM/DL (32-36); Mean Corpuscular Volume 90.4 FL (87-102); Mean Platelet Volume 11.4 FL (9.6-12.0); Monocytes % 0.5 % (1.7-12.7); Neutrophils % 80.5 % (38.7-73.9); Platelet Count 45 T/CUMM (130-400); Red Blood Count 3.95 MC/CUMM (3.8-5.5); White Blood Count 1.9 T/CUMM (4-12)
[2019-08-18 06:04] LABS: Band Neutrophils 2 % (0-10); Lymphocytes 7 % (20-55); Platelet Estimate Decreased; Segmented Neutrophils 89 % (50-85); Total Cells Counted 100
[2019-08-18 06:27] LABS: Calcium 7.8 MG/DL (8.5-10.1); Osmolality,Calculated 280.4 MOS/KG (273-304); Risk Ratio 3.7; Thyroid Stimulating Hormone 0.612 uIU/ml (0.358-3.74); VLDL CHOLESTEROL 8.8 MG/DL
[2019-08-18] MEDS ORDERED: PANTOPRAZOLE 40 MG TABLET PO SCH (09:00)
[2019-08-18] MEDS: CEFTAROLINE 600 MG in SODIUM CHLORIDE 0.9% 100 ML IV SCH ×2 (11:00→23:11)
[2019-08-18] MEDS ORDERED: traMADol 50 MG TABLET PO PRN (11:17)
[2019-08-18] MEDS: PANTOPRAZOLE 40 MG TABLET PO SCH (12:50)
[2019-08-18] MEDS: LACTULOSE 20 GM/30 ML UDCUP PO SCH ×2 (13:23→20:42)
[2019-08-18] MEDS: RIFAXIMIN 550 MG TABLET PO SCH ×2 (13:23→20:42)
[2019-08-18] MEDS ORDERED: AZITHROMYCIN INJ 500 MG in SODIUM CHLORIDE 0.9% 250 ML IV SCH (18:30)
[2019-08-18] MEDS: PROPRANOLOL 10 MG TABLET PO SCH (20:42)
[2019-08-18] MEDS ORDERED: NORTRIPTYLINE 25 MG CAPSULE PO SCH (21:00)
[2019-08-19 05:08] LABS: Basophils % 0.2 % (0.0-0.8); Eosinophils % 0.2 % (0.00-10.9); Hematocrit 33.8 VOL% (35.7-47.0); Immature Granulocytes % 0.6 %; Immature Granulocytes Absolute 0.03 #; Lymphocytes # 0.6 10*3/uL (1.4-4.0); Lymphocytes % 10.5 % (21.3-54.2); Mean Corpuscular HGB Conc 32.5 GM/DL (32-36); Mean Corpuscular Volume 90.4 FL (87-102); Mean Platelet Volume 11.7 FL (9.6-12.0); Monocytes % 5.9 % (1.7-12.7); Neutrophils % 82.6 % (38.7-73.9); Red Blood Count 3.74 MC/CUMM (3.8-5.5); Red Cell Distribution Width 16.3 % (9.3-17.3); White Blood Count 5.5 T/CUMM (4-12)
[2019-08-19 05:15] LABS: Platelet Count 52 T/CUMM (130-400)
[2019-08-19 05:32] LABS: Hypochromasia 1+; Ovalocytes Slight; Platelet Estimate Decreased
[2019-08-19] MEDS ORDERED: PROMETHAZINE 25 MG/1 ML VIAL IM ONE (07:00)
[2019-08-19] MEDS ORDERED: MEPERIDINE 50 MG/1 ML VIAL IM ONE (07:00)
[2019-08-19] MEDS ORDERED: MIDAZOLAM 2 MG/2 ML VIAL ONE (07:25)
[2019-08-19] MEDS ORDERED: LIDOCAINE 2% 20 ML VIAL RESP TX ONE (07:30)
[2019-08-19] MEDS ORDERED: LIDOCAINE 1% 20 ML VIAL MISC INJ ONE (07:30)
[2019-08-19] MEDS ORDERED: MIDAZOLAM 2 MG/2 ML VIAL IV ONE (07:30)
[2019-08-19] MEDS ORDERED: LIDOCAINE 2% VISCOUS 100 ML BOTTLE SWISH/SPIT ONE (07:30)
[2019-08-19] MEDS: CEFTAROLINE 600 MG in SODIUM CHLORIDE 0.9% 100 ML IV SCH ×2 (11:08→22:16)
[2019-08-19] MEDS ORDERED: flumazeniL 0.5 MG/5 ML VIAL IV ONE (12:05)
[2019-08-19] MEDS ORDERED: LACTULOSE 20 GM/30 ML UDCUP PO ONE (13:37)
[2019-08-19] MEDS: LACTULOSE 20 GM/30 ML UDCUP PO SCH ×2 (13:43→20:55)
[2019-08-19] MEDS: PROPRANOLOL 10 MG TABLET PO SCH ×2 (17:32→20:55)
[2019-08-19] MEDS: MULTIVITAMIN (CENTRUM) TABLET PO SCH (17:32)
[2019-08-19] MEDS: PANTOPRAZOLE 40 MG TABLET PO SCH (17:33)
[2019-08-19] MEDS: RIFAXIMIN 550 MG TABLET PO SCH ×2 (17:34→20:55)
[2019-08-19] MEDS: LEVOTHYROXINE 75 MCG TABLET PO SCH (17:34)
[2019-08-19] MEDS ORDERED: LACTULOSE 320 GM/480 ML BOTTLE RECTAL ONE (18:30)
[2019-08-19 20:44] LABS: ABG Base Excess 6.5 MMOL/L (-2.5-2.5); ABG HCO3 30.1 MMOL/L (20-26); ABG Oxygen Saturation 90.1 % (95-100); ABG PCO2 48.4 MM HG (35-48); ABG PH 7.428 (7.35-7.45); ABG PO2 62.6 MM HG (80-95); ABG TCO2 28.2 MMOL/L (23-27); Allen Test Positive
[2019-08-20] MEDS: PANTOPRAZOLE 40 MG TABLET PO SCH (09:24)
[2019-08-20] MEDS: LEVOTHYROXINE 75 MCG TABLET PO SCH (09:24)
[2019-08-20] MEDS: RIFAXIMIN 550 MG TABLET PO SCH ×2 (09:24→20:15)
[2019-08-20] MEDS: MULTIVITAMIN (CENTRUM) TABLET PO SCH (09:24)
[2019-08-20] MEDS: LACTULOSE 20 GM/30 ML UDCUP PO SCH ×2 (09:24→20:15)
[2019-08-20] MEDS: PROPRANOLOL 10 MG TABLET PO SCH ×2 (09:24→20:15)
[2019-08-20] MEDS: CEFTAROLINE 600 MG in SODIUM CHLORIDE 0.9% 100 ML IV SCH ×2 (09:31→22:25)
[2019-08-20 12:36] LABS: Basophils % 0.4 % (0.0-0.8); Eosinophils # 0.2 10*3/uL (0.0-0.87); Eosinophils % 3.8 % (0.00-10.9); Hematocrit 33.9 VOL% (35.7-47.0); Hemoglobin 10.8 GM/DL (12.0-16.0); Immature Granulocytes % 0.2 %; Immature Granulocytes Absolute 0.01 #; Lymphocytes # 0.5 10*3/uL (1.4-4.0); Lymphocytes % 10.9 % (21.3-54.2); Mean Corpuscular HGB Conc 31.9 GM/DL (32-36); Mean Corpuscular Volume 92.1 FL (87-102); Mean Platelet Volume 11.6 FL (9.6-12.0); Monocytes % 10.1 % (1.7-12.7); Neutrophils % 74.6 % (38.7-73.9); Platelet Count 43 T/CUMM (130-400); Red Blood Count 3.68 MC/CUMM (3.8-5.5); Red Cell Distribution Width 16.6 % (9.3-17.3)
[2019-08-20 12:52] LABS: Albumin 1.8 G/DL (3.4-5.0); Calcium 7.6 MG/DL (8.5-10.1); Osmolality,Calculated 290.8 MOS/KG (273-304); Total Protein 6.3 G/DL (6.4-8.3)
[2019-08-20 12:53] LABS: Anisocytosis 1+; Hypochromasia 1+; Microcytosis 1+
[2019-08-20 12:54] LABS: Ovalocytes Slight; Platelet Estimate Decreased
[2019-08-20] MEDS: POTASSIUM CHLORIDE 20 MEQ TABLET PO PRN ×2 (16:38→19:40)
[2019-08-21] MEDS: POTASSIUM CHLORIDE 20 MEQ TABLET PO PRN (00:23)
[2019-08-21] MEDS: PANTOPRAZOLE 40 MG TABLET PO SCH (08:39)
[2019-08-21] MEDS: MULTIVITAMIN (CENTRUM) TABLET PO SCH (08:39)
[2019-08-21] MEDS: RIFAXIMIN 550 MG TABLET PO SCH ×2 (08:39→20:54)
[2019-08-21] MEDS: LEVOTHYROXINE 75 MCG TABLET PO SCH (08:39)
[2019-08-21] MEDS: PROPRANOLOL 10 MG TABLET PO SCH ×2 (08:39→20:54)
[2019-08-21] MEDS: LACTULOSE 20 GM/30 ML UDCUP PO SCH ×2 (08:40→20:54)
[2019-08-21] MEDS: CEFTAROLINE 600 MG in SODIUM CHLORIDE 0.9% 100 ML IV SCH ×2 (09:31→23:27)
[2019-08-21] MEDS: ONDANSETRON 4 MG/2 ML VIAL IV PRN ×2 (09:38→19:50)
[2019-08-22] MEDS: LEVOTHYROXINE 75 MCG TABLET PO SCH (08:17)
[2019-08-22] MEDS: RIFAXIMIN 550 MG TABLET PO SCH ×2 (08:17→21:35)
[2019-08-22] MEDS: PROPRANOLOL 10 MG TABLET PO SCH ×2 (08:17→21:41)
[2019-08-22] MEDS: MULTIVITAMIN (CENTRUM) TABLET PO SCH (08:17)
[2019-08-22] MEDS: PANTOPRAZOLE 40 MG TABLET PO SCH (08:18)
[2019-08-22] MEDS: LACTULOSE 20 GM/30 ML UDCUP PO SCH ×2 (08:18→21:35)
[2019-08-22] MEDS: TAMSULOSIN 0.4 MG CAPSULE PO SCH (10:40)
[2019-08-22] MEDS: CEFTAROLINE 600 MG in SODIUM CHLORIDE 0.9% 100 ML IV SCH (10:40)
[2019-08-22] MEDS: ceFAZolin 1,000 MG in SYRINGE 1 EACH IV SCH ×2 (11:53→21:36)
[2019-08-23] MEDS: ceFAZolin 1,000 MG in SYRINGE 1 EACH IV SCH ×3 (04:16→21:20)
[2019-08-23] MEDS: LEVOTHYROXINE 75 MCG TABLET PO SCH (06:25)
[2019-08-23] MEDS: MULTIVITAMIN (CENTRUM) TABLET PO SCH (08:26)
[2019-08-23] MEDS: TAMSULOSIN 0.4 MG CAPSULE PO SCH (08:26)
[2019-08-23] MEDS: RIFAXIMIN 550 MG TABLET PO SCH ×2 (08:26→21:20)
[2019-08-23] MEDS: LACTULOSE 20 GM/30 ML UDCUP PO SCH ×2 (08:26→21:20)
[2019-08-23] MEDS: PROPRANOLOL 10 MG TABLET PO SCH ×2 (08:26→20:32)
[2019-08-23] MEDS: PANTOPRAZOLE 40 MG TABLET PO SCH (08:26)
[2019-08-23] MEDS: FLUCONAZOLE 100 MG TABLET PO SCH (16:13)
[2019-08-24] MEDS: ceFAZolin 1,000 MG in SYRINGE 1 EACH IV SCH ×3 (04:32→21:46)
[2019-08-24] MEDS: LEVOTHYROXINE 75 MCG TABLET PO SCH (05:46)
[2019-08-24] MEDS: TAMSULOSIN 0.4 MG CAPSULE PO SCH (08:14)
[2019-08-24] MEDS: PANTOPRAZOLE 40 MG TABLET PO SCH (08:15)
[2019-08-24] MEDS: MULTIVITAMIN (CENTRUM) TABLET PO SCH (08:15)
[2019-08-24] MEDS: RIFAXIMIN 550 MG TABLET PO SCH ×2 (08:15→21:44)
[2019-08-24] MEDS: PROPRANOLOL 10 MG TABLET PO SCH ×2 (08:15→21:44)
[2019-08-24] MEDS: FLUCONAZOLE 100 MG TABLET PO SCH (08:15)
[2019-08-24] MEDS: LACTULOSE 20 GM/30 ML UDCUP PO SCH ×2 (08:15→21:43)
[2019-08-24] MEDS: ONDANSETRON 4 MG/2 ML VIAL IV PRN (21:46)
[2019-08-25] MEDS: ceFAZolin 1,000 MG in SYRINGE 1 EACH IV SCH ×2 (04:21→11:51)
[2019-08-25] MEDS: LEVOTHYROXINE 75 MCG TABLET PO SCH (06:16)
[2019-08-25] MEDS: TAMSULOSIN 0.4 MG CAPSULE PO SCH (08:49)
[2019-08-25] MEDS: RIFAXIMIN 550 MG TABLET PO SCH (08:49)
[2019-08-25] MEDS: LACTULOSE 20 GM/30 ML UDCUP PO SCH (08:49)
[2019-08-25] MEDS: MULTIVITAMIN (CENTRUM) TABLET PO SCH (08:49)
[2019-08-25] MEDS: FLUCONAZOLE 100 MG TABLET PO SCH (08:49)
[2019-08-25] MEDS: PROPRANOLOL 10 MG TABLET PO SCH (08:49)
[2019-08-25] MEDS: PANTOPRAZOLE 40 MG TABLET PO SCH (08:49)
[2019-08-25] MEDS: ONDANSETRON 4 MG/2 ML VIAL IV PRN (11:56)
[2019-08-25 12:27] VITALS: BP 118/52
[2019-08-26] MEDS ORDERED: DOXYCYCLINE HYCLATE 100 MG CAPSULE PO SCH (09:00)
== END 2019-08-25 13:45 | disposition home health service (06) | DRG 191 ==
LOC: N.ED 17:03 → SUATTDRO 20:35 → N.EDINP 20:35 → N.CC 21:42 → N.5E 08-18 14:46
PROVIDERS: ADMIT Internal Medicine Cardiovascular Disease; ATTEND Emergency Medicine

== ENCOUNTER 2019-09-14 15:47 | Inpatient (IN) ==
[2019-09-14 16:25] LABS: Apearance,Urine Slightly Hazy (Clear); Bacteria,Urine Occasional /HPF (Few); Bilirubin,Urine Negative (Negative); Blood, Urine Large mg/dL (Negative); Glucose,Urine (UA) Negative (Negative); Ketones,Urine Negative (Negative); Mucus,Urine Many /LPF (Occasional); Nitrite,Urine Negative (Negative); Protein,Urine 30 MG/DL; RBC,Urine 15 /HPF (0-4); Squamous Epithelial Cell,Urine Few /HPF (0-10); Urine Color Amber (Yellow); Urine Specific Gravity 1.024 (1.001-1.035); WBC,Urine 3 /HPF (0-6)
[2019-09-14 16:30] LABS: Basophils # 0.1 10*3/uL (0.0-0.2); Basophils % 0.6 % (0.0-0.8); Eosinophils # 0.6 10*3/uL (0.0-0.87); Eosinophils % 7.1 % (0.00-10.9); Hematocrit 38.7 VOL% (35.7-47.0); Hemoglobin 12.6 GM/DL (12.0-16.0); Immature Granulocytes % 0.5 %; Immature Granulocytes Absolute 0.04 #; Lymphocytes # 0.9 10*3/uL (1.4-4.0); Lymphocytes % 10.7 % (21.3-54.2); Mean Corpuscular HGB Conc 32.6 GM/DL (32-36); Mean Platelet Volume 11.8 FL (9.6-12.0); Monocytes % 11.4 % (1.7-12.7); Neutrophils % 69.7 % (38.7-73.9); Red Blood Count 4.16 MC/CUMM (3.8-5.5); Red Cell Distribution Width 16.9 % (9.3-17.3)
[2019-09-14 16:34] LABS: Platelet Count 77 T/CUMM (130-400)
[2019-09-14 16:46] LABS: Albumin 2.1 G/DL (3.4-5.0); Bilirubin,Total 1.6 MG/DL (0.2-1.0); Calcium 7.8 MG/DL (8.5-10.1); Osmolality,Calculated 262.7 MOS/KG (273-304); Total Protein 7.1 G/DL (6.4-8.3)
[2019-09-14] MEDS ORDERED: SODIUM CHLOR 0.9% KCL 40 MEQ 40 MEQ/1,000 ML BAG IV SCH (17:00)
[2019-09-14] MEDS ORDERED: SODIUM CHLORIDE 0.9% 1,000 ML IV STA (17:00)
[2019-09-14] MEDS ORDERED: MEROPENEM 1,000 MG in SODIUM CHLORIDE 0.9% 100 ML IV STA (17:05)
[2019-09-14 17:16] LABS: Hypochromasia 2+; Polychromasia 1+
[2019-09-14 17:17] LABS: Anisocytosis Slight; Macrocytosis Slight; Platelet Estimate Adequate
[2019-09-14] MEDS ORDERED: IBUPROFEN 800 MG TABLET PO STA (17:21)
[2019-09-14 17:47] LABS: INR 1.3; Partial Thromboplastin Time 28.5 SECS (20.8-36.0)
[2019-09-14] MEDS ORDERED: DOCUSATE SODIUM 100 MG CAPSULE PO PRN (17:48)
[2019-09-14] MEDS ORDERED: IBUPROFEN 200 MG TABLET PO PRN (17:54)
[2019-09-14] MEDS ORDERED: AZITHROMYCIN INJ 500 MG in SODIUM CHLORIDE 0.9% 250 ML IV SCH (21:00)
[2019-09-14] MEDS: SODIUM CHLOR 0.9% KCL 20 MEQ 20 MEQ/1,000 ML BAG IV SCH (21:20)
[2019-09-14] MEDS: POTASSIUM CHLORIDE 20 MEQ TABLET PO SCH (21:21)
[2019-09-14] MEDS: CLINDAMYCIN INJ 600 MG in PREMIX 1 EACH IV SCH (22:27)
[2019-09-15] MEDS: ONDANSETRON 4 MG/2 ML VIAL IV PRN ×2 (01:33→11:39)
[2019-09-15] MEDS: SODIUM CHLOR 0.9% KCL 20 MEQ 20 MEQ/1,000 ML BAG IV SCH ×3 (02:50→21:20)
[2019-09-15 05:38] LABS: Basophils % 0.7 % (0.0-0.8); Eosinophils # 0.3 10*3/uL (0.0-0.87); Eosinophils % 7.6 % (0.00-10.9); Hematocrit 33.9 VOL% (35.7-47.0); Hemoglobin 10.9 GM/DL (12.0-16.0); Immature Granulocytes % 0.5 %; Immature Granulocytes Absolute 0.02 #; Lymphocytes # 0.7 10*3/uL (1.4-4.0); Lymphocytes % 17.1 % (21.3-54.2); Mean Corpuscular HGB Conc 32.2 GM/DL (32-36); Mean Corpuscular Volume 94.7 FL (87-102); Mean Platelet Volume 11.6 FL (9.6-12.0); Monocytes % 10.9 % (1.7-12.7); Neutrophils % 63.2 % (38.7-73.9); Platelet Count 48 T/CUMM (130-400); Red Blood Count 3.58 MC/CUMM (3.8-5.5); Red Cell Distribution Width 16.9 % (9.3-17.3); White Blood Count 4.3 T/CUMM (4-12)
[2019-09-15] MEDS: CLINDAMYCIN INJ 600 MG in PREMIX 1 EACH IV SCH (05:42)
[2019-09-15 05:58] LABS: Calcium 7.5 MG/DL (8.5-10.1); Osmolality,Calculated 276.4 MOS/KG (273-304)
[2019-09-15 06:41] LABS: Eosinophils 7 % (0-10); Hypochromasia 1+; Lymphocytes 19 % (20-55); Ovalocytes Slight; Platelet Estimate Decreased; Segmented Neutrophils 67 % (50-85); Total Cells Counted 100
[2019-09-15] MEDS ORDERED: PANTOPRAZOLE 40 MG TABLET PO SCH (09:00)
[2019-09-15] MEDS: ENOXAPARIN 40 MG/0.4 ML SYRINGE SUBCUT SCH (09:35)
[2019-09-15] MEDS: POTASSIUM CHLORIDE 20 MEQ TABLET PO SCH ×2 (09:35→20:23)
[2019-09-15] MEDS: AZTREONAM 2,000 MG in SODIUM CHLORIDE 0.9% 100 ML IV SCH ×2 (11:33→19:35)
[2019-09-15] MEDS ORDERED: MAGNESIUM SULF RIDER 2 GM in PREMIX 1 EACH IV ONE (12:26)
[2019-09-15] MEDS ORDERED: oxyCODONE IR 5 MG TABLET PO PRN (12:27)
[2019-09-15] MEDS: PROPRANOLOL 10 MG TABLET PO SCH ×2 (13:56→20:23)
[2019-09-15] MEDS: RIFAXIMIN 550 MG TABLET PO SCH ×2 (13:59→20:23)
[2019-09-15] MEDS: CHOLECALCIFEROL 1,000 UNIT TABLET PO SCH (16:19)
[2019-09-15] MEDS: DOXYCYCLINE HYCLATE 100 MG CAPSULE PO SCH (20:23)
[2019-09-15] MEDS ORDERED: NORTRIPTYLINE 25 MG CAPSULE PO SCH (21:00)
[2019-09-16] MEDS: AZTREONAM 2,000 MG in SODIUM CHLORIDE 0.9% 100 ML IV SCH ×2 (03:37→08:55)
[2019-09-16 05:50] LABS: Calcium 7.3 MG/DL (8.5-10.1); Osmolality,Calculated 281.1 MOS/KG (273-304)
[2019-09-16] MEDS: SODIUM CHLOR 0.9% KCL 20 MEQ 20 MEQ/1,000 ML BAG IV SCH (06:26)
[2019-09-16] MEDS: PROPRANOLOL 10 MG TABLET PO SCH (08:48)
[2019-09-16] MEDS: DOXYCYCLINE HYCLATE 100 MG CAPSULE PO SCH (08:48)
[2019-09-16] MEDS: RIFAXIMIN 550 MG TABLET PO SCH (08:48)
[2019-09-16] MEDS: CHOLECALCIFEROL 1,000 UNIT TABLET PO SCH (08:48)
[2019-09-16] MEDS: ENOXAPARIN 40 MG/0.4 ML SYRINGE SUBCUT SCH (08:49)
[2019-09-16] MEDS ORDERED: NON-FORMULARY MEDICATION (Biotin 5,000 MCG) SL SCH (09:00)
[2019-09-16] MEDS ORDERED: BACLOFEN 10 MG TABLET PO SCH (09:00)
[2019-09-16] MEDS ORDERED: PANTOPRAZOLE 40 MG TABLET PO SCH (09:00)
[2019-09-16] MEDS ORDERED: PRIMIDONE 50 MG TABLET PO SCH (09:00)
[2019-09-16] MEDS ORDERED: LEVOTHYROXINE 75 MCG TABLET PO SCH (09:00)
[2019-09-16 11:31] VITALS: BP 111/63
== END 2019-09-16 16:08 | disposition home or self-care (01) | DRG 194 ==
LOC: EDUNIT# → N.ED 15:47 → N.EDINP 18:03 → N.2E 19:30
PROVIDERS: ADMIT Family Medicine; ATTEND Family Medicine

== ENCOUNTER 2019-10-14 17:26 | Inpatient (IN) ==
[2019-10-14 19:41] LABS: Basophils % 0.8 % (0.0-0.8); Eosinophils # 0.2 10*3/uL (0.0-0.87); Eosinophils % 4.5 % (0.00-10.9); Hematocrit 35.6 VOL% (35.7-47.0); Hemoglobin 11.8 GM/DL (12.0-16.0); Immature Granulocytes % 0.4 %; Immature Granulocytes Absolute 0.02 #; Lymphocytes % 19.6 % (21.3-54.2); Mean Corpuscular HGB Conc 33.1 GM/DL (32-36); Mean Corpuscular Volume 94.4 FL (87-102); Monocytes % 10.5 % (1.7-12.7); Neutrophils % 64.2 % (38.7-73.9); Platelet Count 47 T/CUMM (130-400); Red Blood Count 3.77 MC/CUMM (3.8-5.5); Red Cell Distribution Width 16.1 % (9.3-17.3); White Blood Count 4.9 T/CUMM (4-12)
[2019-10-14 20:00] LABS: Albumin 2.1 G/DL (3.4-5.0); Bilirubin,Total 1.3 MG/DL (0.2-1.0); Calcium 7.8 MG/DL (8.5-10.1); Osmolality,Calculated 272.7 MOS/KG (273-304); Total Protein 6.9 G/DL (6.4-8.3)
[2019-10-14] MEDS ORDERED: POTASSIUM CHLORIDE 20 MEQ/15 ML UDCUP PO ONE (20:12)
[2019-10-14] MEDS ORDERED: AZITHROMYCIN INJ 500 MG in SODIUM CHLORIDE 0.9% 250 ML IV STA (20:16)
[2019-10-14 20:38] LABS: Apearance,Urine CLOUDY (Clear); Bilirubin,Urine Negative (Negative); Blood, Urine Small mg/dL (Negative); Glucose,Urine (UA) Negative (Negative); Ketones,Urine Negative (Negative); Mucus,Urine Moderate /LPF (Occasional); Nitrite,Urine Negative (Negative); Protein,Urine Negative; Squamous Epithelial Cell,Urine Few /HPF (0-10); Urine Color Amber (Yellow); Urine Specific Gravity 1.013 (1.001-1.035); Urine Urobilinogen < 2.0 EU/DL (0.2-1.0)
[2019-10-14] MEDS ORDERED: ACETAMINOPHEN 325 MG TABLET PO PRN (21:28)
[2019-10-14] MEDS ORDERED: ONDANSETRON 4 MG/2 ML VIAL IV PRN (21:28)
[2019-10-14] MEDS ORDERED: ALBUTEROL 2.5 MG/3 ML NEB RESP TX PRN (21:28)
[2019-10-14] MEDS ORDERED: DOCUSATE SODIUM 100 MG CAPSULE PO PRN (21:28)
[2019-10-14] MEDS ORDERED: PROMETHAZINE 25 MG/1 ML VIAL IM PRN (21:28)
[2019-10-14] MEDS ORDERED: MORPHINE 4 MG/1 ML VIAL IV PRN (21:28)
[2019-10-14] MEDS ORDERED: AZITHROMYCIN INJ 500 MG in SODIUM CHLORIDE 0.9% 250 ML IV SCH (22:00)
[2019-10-15] MEDS: ALBUTEROL/IPRATROPIUM 3 ML NEB RESP TX SCH ×4 (01:28→18:40)
[2019-10-15] MEDS: MEROPENEM 500 MG in SODIUM CHLORIDE 0.9% 100 ML IV SCH ×4 (01:55→17:57)
[2019-10-15] MEDS: VANCOMYCIN INJ 1,250 MG in SODIUM CHLORIDE 0.9% 250 ML IV SCH ×2 (03:39→15:38)
[2019-10-15] MEDS ORDERED: POTASSIUM CHLORIDE RIDER 10 MEQ in PREMIX 1 EACH IV PRN (05:24)
[2019-10-15 06:24] LABS: Basophils % 0.7 % (0.0-0.8); Eosinophils # 0.1 10*3/uL (0.0-0.87); Eosinophils % 3.3 % (0.00-10.9); Hematocrit 32.4 VOL% (35.7-47.0); Hemoglobin 10.8 GM/DL (12.0-16.0); Immature Granulocytes % 0.3 %; Immature Granulocytes Absolute 0.01 #; Lymphocytes # 0.7 10*3/uL (1.4-4.0); Lymphocytes % 22.2 % (21.3-54.2); Mean Corpuscular HGB Conc 33.3 GM/DL (32-36); Mean Corpuscular Volume 93.6 FL (87-102); Mean Platelet Volume 12.4 FL (9.6-12.0); Monocytes % 11.6 % (1.7-12.7); Neutrophils % 61.9 % (38.7-73.9); Red Blood Count 3.46 MC/CUMM (3.8-5.5); Red Cell Distribution Width 16.2 % (9.3-17.3)
[2019-10-15 06:38] LABS: Platelet Count 33 T/CUMM (130-400)
[2019-10-15 06:49] LABS: Anisocytosis 1+; Hypochromasia 1+
[2019-10-15 06:50] LABS: Ovalocytes Slight; Platelet Estimate Decreased
[2019-10-15 07:10] LABS: Albumin 1.7 G/DL (3.4-5.0); Calcium 7.7 MG/DL (8.5-10.1); Osmolality,Calculated 277.3 MOS/KG (273-304); Total Protein 6.4 G/DL (6.4-8.3)
[2019-10-15] MEDS ORDERED: PANTOPRAZOLE 40 MG TABLET PO SCH (09:00)
[2019-10-15] MEDS ORDERED: NON-FORMULARY MEDICATION (Biotin 5,000 MCG) SL SCH (09:00)
[2019-10-15] MEDS ORDERED: [UNRECOGNIZED DRUG - OTHER] PO SCH (09:00)
[2019-10-15] MEDS: BACLOFEN 10 MG TABLET PO SCH (10:29)
[2019-10-15] MEDS: PANTOPRAZOLE 40 MG TABLET PO SCH (10:29)
[2019-10-15] MEDS: LEVOTHYROXINE 75 MCG TABLET PO SCH (10:29)
[2019-10-15] MEDS: PROPRANOLOL 10 MG TABLET PO SCH ×2 (10:29→21:03)
[2019-10-15] MEDS: RIFAXIMIN 550 MG TABLET PO SCH ×2 (10:29→21:03)
[2019-10-15] MEDS: PRIMIDONE 50 MG TABLET PO SCH (10:30)
[2019-10-15] MEDS: POTASSIUM CHLORIDE 20 MEQ TABLET PO SCH (10:30)
[2019-10-15] MEDS: FUROSEMIDE 40 MG TABLET PO SCH ×2 (10:30→15:38)
[2019-10-15] MEDS: CHOLECALCIFEROL 1,000 UNIT TABLET PO SCH (17:58)
[2019-10-15] MEDS: SODIUM CHLORIDE 3% 4 ML NEB RESP TX SCH (18:40)
[2019-10-15] MEDS ORDERED: AZITHROMYCIN INJ 500 MG in SODIUM CHLORIDE 0.9% 250 ML IV SCH (21:00)
[2019-10-16] MEDS: MEROPENEM 500 MG in SODIUM CHLORIDE 0.9% 100 ML IV SCH ×3 (00:54→11:55)
[2019-10-16] MEDS: ALBUTEROL/IPRATROPIUM 3 ML NEB RESP TX SCH ×3 (01:16→13:41)
[2019-10-16] MEDS: VANCOMYCIN INJ 1,250 MG in SODIUM CHLORIDE 0.9% 250 ML IV SCH ×2 (02:58→15:43)
[2019-10-16 06:11] LABS: Basophils % 0.7 % (0.0-0.8); Eosinophils # 0.1 10*3/uL (0.0-0.87); Eosinophils % 4.9 % (0.00-10.9); Hematocrit 33.6 VOL% (35.7-47.0); Hemoglobin 10.9 GM/DL (12.0-16.0); Immature Granulocytes % 0.7 %; Immature Granulocytes Absolute 0.02 #; Lymphocytes # 0.6 10*3/uL (1.4-4.0); Lymphocytes % 21.3 % (21.3-54.2); Mean Corpuscular HGB Conc 32.4 GM/DL (32-36); Mean Platelet Volume 11.5 FL (9.6-12.0); Monocytes % 9.7 % (1.7-12.7); Neutrophils % 62.7 % (38.7-73.9); White Blood Count 2.7 T/CUMM (4-12)
[2019-10-16 06:19] LABS: Platelet Count 31 T/CUMM (130-400)
[2019-10-16 06:23] LABS: Calcium 7.6 MG/DL (8.5-10.1); Osmolality,Calculated 275.5 MOS/KG (273-304)
[2019-10-16] MEDS: LEVOTHYROXINE 75 MCG TABLET PO SCH (06:32)
[2019-10-16 07:23] LABS: Hypochromasia 1+
[2019-10-16 07:24] LABS: Macrocytosis 1+; Platelet Estimate Decreased
[2019-10-16] MEDS: SODIUM CHLORIDE 3% 4 ML NEB RESP TX SCH (07:46)
[2019-10-16] MEDS ORDERED: POTASSIUM CHLORIDE 20 MEQ TABLET PO ONE (08:27)
[2019-10-16] MEDS: PRIMIDONE 50 MG TABLET PO SCH (09:12)
[2019-10-16] MEDS: CHOLECALCIFEROL 1,000 UNIT TABLET PO SCH ×2 (09:12→16:25)
[2019-10-16] MEDS: RIFAXIMIN 550 MG TABLET PO SCH (09:12)
[2019-10-16] MEDS: BACLOFEN 10 MG TABLET PO SCH (09:12)
[2019-10-16] MEDS: PANTOPRAZOLE 40 MG TABLET PO SCH (09:13)
[2019-10-16] MEDS: POTASSIUM CHLORIDE 20 MEQ TABLET PO SCH (09:13)
[2019-10-16] MEDS: PROPRANOLOL 10 MG TABLET PO SCH (09:13)
[2019-10-16] MEDS: FUROSEMIDE 40 MG TABLET PO SCH ×2 (09:13→16:25)
[2019-10-16 12:49] VITALS: BP 105/62
== END 2019-10-16 17:17 | disposition home or self-care (01) | DRG 194 ==
LOC: N.ED 17:26 → N.EDINP 21:28 → SUATTDRO 21:28 → N.5E 21:57
PROVIDERS: ADMIT Internal Medicine Cardiovascular Disease; ATTEND Family Medicine